=== PATIENT | male | born 1970 | race American Indian/Alaskan Native ===

== ENCOUNTER 2017-12-24 01:23 | Emergency (ER) | payer OTHER ==
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
[2017-12-24 12:11] VITALS: BP 133/83
== END 2017-12-24 11:58 | disposition home or self-care (01) ==
LOC: ED 01:23
DX: S39.012A Strain of muscle, fascia and tendon of lower back, initial encounter (principal); S66.911A Strain of unspecified muscle, fascia and tendon at wrist and hand level, right hand, initial encounter; S86.912A Strain of unspecified muscle(s) and tendon(s) at lower leg level, left leg, initial encounter; S13.4XXA Sprain of ligaments of cervical spine, initial encounter; V49.40XA Driver injured in collision with unspecified motor vehicles in traffic accident, initial encounter; I10 Essential (primary) hypertension; I25.2 Old myocardial infarction; Y93.89 Activity, other specified; Y92.89 Other specified places as the place of occurrence of the external cause; Y99.8 Other external cause status
CPT/HCPCS: 74022; 99283

== ENCOUNTER 2018-03-10 00:57 | Inpatient (IN) | payer SELFPAY ==
[2018-03-10] MEDS ORDERED: ZOFRAN ONE (01:33)
[2018-03-10] MEDS ORDERED: ZOFRAN IV ONE (01:35)
--- NOTE | 2018-03-10 01:35 | Emergency Department Report ---
HPI - General Chief Complaint: Dizziness Time Seen by Provider: 03/10/18 01:05 - HPI HPI: This is a 47-year-old -[place] male presents to the emergency department via EMS from home with complaint of nausea, vomiting, dizziness and shortness of breath that started about one hour prior to presentation. The patient has vomited about 6 times in total including 4 times even after EMS arrived. He received 4 mg of Zofran in route with some improvement. Prior to EMS, the patient took a sublingual nitroglycerin and an aspirin for his symptoms. He denies any chest pain does have a significant history of 2 previous heart attacks in 2012 in 2016, hypertension. He has a pacemaker/ defibrillator and has coronary stents in place. 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 No recent travel or sick contacts at home. ED Past Medical Hx - Past Medical History Previous Medical History?: Yes Hx Hypertension: Yes Hx Heart Attack/AMI: Yes (2011, 2015) - Surgical History Past Surgical History?: Yes Hx Coronary Stent: Yes Additional Surgical History: stents placed by [facility]? left chest pacemaker/defibrillator 2016 - Social History Smoking Status: Never Smoker Substance Use Type: None - Medications Home Medications: Home Medications Medication Instructions Recorded Confirmed Last Taken Type Aspirin EC [Aspirin Enteric Coated 81 mg PO QDAY #30 tablet 01/09/16 03/10/18 10:00 Rx TAB] AtorvaSTATin [Lipitor] 40 mg PO QHS #30 tablet 01/09/16 03/10/18 07/09/16 10:00 Rx Clopidogrel [Plavix] 75 mg PO QDAY #30 tablet 01/09/16 03/10/18 07/09/16 10:00 Rx Metoprolol [Lopressor TAB] 50 mg PO BID #60 tablet 07/23/16 03/10/18 Unknown Rx ED Review of Systems ROS: Stated complaint: N/V/DIZZINESS Other details as noted in HPI Comment: All other systems reviewed and negative Constitutional: denies: chills, fever Eyes: denies: eye pain, eye discharge, vision change ENT: denies: ear pain, throat pain Respiratory: shortness of breath. denies: cough Cardiovascular: denies: chest pain, edema Gastrointestinal: nausea, vomiting Genitourinary: denies: urgency, dysuria Musculoskeletal: denies: back pain, joint swelling, arthralgia Skin: denies: rash, lesions Neurological: other (dizziness). denies: weakness Physical Exam - Physical Exam Vital Signs: Vital Signs 03/10/18 03/10/18 01:03 01:24 Temperature 97.8 F Pulse Rate 86 Respiratory 15 16 Rate Blood Pressure 120/78 Blood Pressure 120/78 [Left] O2 Sat by Pulse 97 97 Oximetry Physical Exam: GENERAL: Patient is ill-appearing. Actively vomiting. HENT: Normocephalic. Atraumatic. Patient has moist mucous membranes. EYES: Extraocular motions are intact. Pupils equal reactive to light bilaterally. NECK: Supple. Trachea is midline. CHEST/LUNGS: Clear to auscultation. There is no respiratory distress noted. HEART/CARDIOVASCULAR: Regular. There is no tachycardia. There is no murmur. ABDOMEN: Abdomen is soft. Mild epigastric tenderness to palpation. No guarding. Patient has normal bowel sounds. There is no abdominal distention. SKIN: Skin is warm and dry. NEURO: The patient is awake, alert, and oriented. The patient is cooperative. The patient has no focal neurologic deficits. The patient has normal speech. Cranial nerves II through XII grossly intact. MUSCULOSKELETAL: There is no tenderness or deformity. There is no limitation range of motion. There is no evidence of acute injury. ED Course Vital Signs 03/10/18 03/10/18 01:03 01:24 Temperature 97.8 F Pulse Rate 86 Respiratory 15 16 Rate Blood Pressure 120/78 Blood Pressure 120/78 [Left] O2 Sat by Pulse 97 97 Oximetry - Reevaluation(s) Reevaluation #1: The patient was reevaluated and we attempted to see how he did with ambulation but the patient felt very dizzy, began vomiting and then began complaining of some chest tightness. A third EKG was completed that was unchanged from the previous 2. Patient will have a CT angiography of the chest as well as a CT without contrast of the head. He will then be admitted to the hospital for further evaluation and treatment. 03/10/18 06:21 ED Medical Decision Making - Lab Data Result diagrams: 03/11/18 07:19 03/11/18 07:19 - EKG Data -: EKG Interpreted by [facility] EKG shows normal: sinus rhythm, axis, intervals, QRS complexes (Q waves to the septal and anterior leads, LVH), ST-T waves Rate: normal - EKG Data When compared to previous EKG there are: no significant change Interpretation: unchanged when compared t (07/23/16) - Radiology Data Radiology results: report reviewed, image reviewed PROCEDURE: CT ANGIO CHEST TECHNIQUE: Computerized tomographic angiography of the chest was performed after the IV injection of iodinated nonionic contrast including image processing. The image data was postprocessed using 2-dimensional multiplanar reformatted (MPR) and 3-dimensional (MIP and/or volume rendered) techniques. HISTORY: CP, dizziness COMPARISON: No prior studies are available for comparison. FINDINGS: Heart and pericardium: Normal. Thoracic aorta: Normal. Pulmonary vasculature: Normal. Lymph nodes: No enlarged thoracic lymph nodes. Lungs: Slight atelectasis bilateral lower lungs. No consolidation, effusion or pneumothorax. The central airway is patent. Pleural space: No effusion, thickening, or pneumothorax. Musculoskeletal structures: No significant abnormality. Upper abdominal structures: No significant abnormality. IMPRESSION: There is no evidence of pulmonary arterial emboli. Bilateral lower lung atelectasis. PROCEDURE: CT HEAD/BRAIN WO CON TECHNIQUE: Computerized tomography of the head was performed without contrast material. HISTORY: dizziness COMPARISON: No prior studies are available for comparison. FINDINGS: Skull and scalp: Normal. Paranasal sinuses: Normal. Ventricles and subarachnoid spaces: Normal. Cerebrum: No evidence of hemorrhage, acute infarction or mass . Cerebellum and brainstem: No evidence of hemorrhage, acute infarction or mass. Vasculature: Normal. Comments: None. IMPRESSION: Normal Examination Transcribed By: [facility] Dictated By: BRYON MONDRAGON MD Electronically Authenticated By: BRYON MONDRAGON MD Signed Date/Time: 03/10/18 0644 - Medical Decision Making Patient originally came in with a complaint of nausea and vomiting, shortness of breath and some nonspecific dizziness. He was treated with some IV fluid, antinausea medications. His labs were unremarkable. He had an x-ray of the chest and abdomen that did not show any acute processes. During his ED course we attempted to get him up to ambulate to see how he did regarding his symptoms. As soon as he got up, he became very dizzy with some vertigo like symptoms, complained of chest tightness and had continued nausea and vomiting. He was given some Antivert. A CT of the head without contrast was done that did not show any bleed, shift, mass or any acute process. CT angiography did not show any pulmonary embolism or aortic dissection. Patient was admitted to the hospital for further evaluation and treatment and accepted for admission by the hospitalist service. - Differential Diagnosis vertigo, NM, PE, dysrhythmia, viral syndrome Critical Care Time: No Critical care attestation.: If time is entered above; I have spent that time in minutes in the direct care of this critically ill patient, excluding procedure time. ED Disposition Clinical Impression: Dizziness, Chest tightness Dyspnea Qualifiers: Dyspnea type: shortness of breath Qualified Code(s): R06.02 - Shortness of breath Intractable nausea and vomiting Qualifiers: Vomiting type: unspecified Qualified Code(s): R11.2 - Nausea with vomiting, unspecified Disposition: DC-09 OP ADMIT IP TO THIS HOSP Is pt being admited?: Yes Condition: Fair Time of Disposition: 06:23
[2018-03-10 01:38] LABS: Basophils % (Auto) 0.4 % (0.0-1.8); Eosinophils # (Auto) 0.1 K/mm3 (0.0-0.4); Eosinophils % (Auto) 1.6 % (0.0-4.3); Hematocrit 41.9 % (35.5-45.6); Hemoglobin 14.1 gm/dl (11.8-15.2); Lymphocytes # (Auto) 2.2 K/mm3 (1.2-5.4); Lymphocytes % (Auto) 24.6 % (13.4-35.0); Mean Corpuscular HGB Conc 34 % (32-34); Mean Corpuscular Hemoglobin 30 pg (28-32); Mean Corpuscular Volume 90 fl (84-94); Monocytes # (Auto) 0.5 K/mm3 (0.0-0.8); Platelet Count 198 K/mm3 (140-440); Red Blood Count 4.67 M/mm3 (3.65-5.03); Red Cell Distribution Width 13.5 % (13.2-15.2)
[2018-03-10 01:49] LABS: BUN/Creatinine Ratio 12; Blood Urea Nitrogen 13 mg/dL (9-20); Calcium 9.4 mg/dL (8.4-10.2); Hemolysis Index 3
[2018-03-10 01:53] LABS: Alanine Aminotransferase 16 units/L (7-56); Albumin 4.5 g/dL (3.9-5); Lipase 14 units/L (13-60)
[2018-03-10 01:57] LABS: Bilirubin,Direct < 0.2 mg/dL (0-0.2)
[2018-03-10] MEDS ORDERED: NACL 0.9% 500 ML 500 ML IV SCH (02:00)
--- NOTE | 2018-03-10 02:30 | XRay Report ---
FINAL REPORT PROCEDURE: XR ABD SERIES W CXR 1V TECHNIQUE: Abdominal series complete, including supine and upright AP views of the abdomen and frontal chest. HISTORY: SOB, N/V COMPARISON: No prior studies are available for comparison. FINDINGS: Heart: Normal. Mediastinum/Vessels: There is a cardiac pacemaker with the battery in the left chest wall. Lungs/Pleural space: Normal. Bowel gas pattern: Nonobstructive. Masses or calcifications: None. Bony structures: No acute osseous abnormality. Other: No free intraperitoneal air. IMPRESSION: No acute abnormality.
[2018-03-10] MEDS ORDERED: NACL 0.9% 1000 ML 1,000 ML IV ONE (03:47)
[2018-03-10] MEDS ORDERED: REGLAN IV ONE (05:10)
[2018-03-10] MEDS ORDERED: REGLAN ONE (05:11)
[2018-03-10] MEDS ORDERED: ANTIVERT PO ONE (05:37)
--- NOTE | 2018-03-10 06:52 | Cat Scan Report ---
FINAL REPORT PROCEDURE: CT HEAD/BRAIN WO CON TECHNIQUE: Computerized tomography of the head was performed without contrast material. HISTORY: dizziness COMPARISON: No prior studies are available for comparison. FINDINGS: Skull and scalp: Normal. Paranasal sinuses: Normal. Ventricles and subarachnoid spaces: Normal. Cerebrum: No evidence of hemorrhage, acute infarction or mass . Cerebellum and brainstem: No evidence of hemorrhage, acute infarction or mass. Vasculature: Normal. Comments: None. IMPRESSION: Normal Examination
--- NOTE | 2018-03-10 06:53 | Cat Scan Report ---
FINAL REPORT PROCEDURE: CT ANGIO CHEST TECHNIQUE: Computerized tomographic angiography of the chest was performed after the IV injection of iodinated nonionic contrast including image processing. The image data was postprocessed using 2-dimensional multiplanar reformatted (MPR) and 3-dimensional (MIP and/or volume rendered) techniques. HISTORY: CP, dizziness COMPARISON: No prior studies are available for comparison. FINDINGS: Heart and pericardium: Normal. Thoracic aorta: Normal. Pulmonary vasculature: Normal. Lymph nodes: No enlarged thoracic lymph nodes. Lungs: Slight atelectasis bilateral lower lungs. No consolidation, effusion or pneumothorax. The central airway is patent. Pleural space: No effusion, thickening, or pneumothorax. Musculoskeletal structures: No significant abnormality. Upper abdominal structures: No significant abnormality. IMPRESSION: There is no evidence of pulmonary arterial emboli. Bilateral lower lung atelectasis.
[2018-03-10 08:02] LABS: Bilirubin,Urine NEG (Negative); Blood,Urine NEG (Negative); Color,Urine Yellow (Yellow); Mucus,Urine FEW /HPF; Protein,Urine <15 mg/dL mg/dL (Negative); Urobilinogen,Urine < 2.0 mg/dL (<2.0); WBC,Urine < 1.0 /HPF (0.0-6.0)
[2018-03-10] MEDS ORDERED: ZOFRAN IV PRN (08:15)
[2018-03-10] MEDS ORDERED: TYLENOL PO PRN (08:15)
[2018-03-10] MEDS ORDERED: SODIUM CHLORIDE FLUSH SYRINGE 10 ML IV PRN (08:15)
[2018-03-10] MEDS ORDERED: PERCOCET 5/325 PO PRN (08:15)
--- NOTE | 2018-03-10 08:15 | History and Physical Report ---
History of Present Illness Date of examination: 03/10/18 Chief complaint: Dizziness History of present illness: 47-year-old male with past medical history significant for CAD status post stent , cardiomyopathy status post ICD presented to the emergency department for the complaints of dizziness and shortness of breath that started yesterday evening. Patient was walking while the incident happens, patient didn't fall. The room spins around him. patient is also complaining of SOB that worsened with exertion. Patient's systolic blood pressure was in the 150's when the dizziness started. patient took nitroglycerin before the incident. Patient is also complaining of associated recurrent nausea and vomiting. patient has been followed with [place] [facility]. patient denied fever, chills, cough, palpitations. REVIEW OF SYSTEMS: GENERAL: no weight change, no fatigue, no fever HEAD: no head ache EYES: no blurry vision, no acute visual loss EARS: no hearing loss, no discharge, no earache NOSE: no stuffiness, no sneezing, no discharge MOUTH, THROAT AND NECK: no bleeding gums, no sore throat, no swollen neck CARDIAC: As stated in the HPI. RESPIRATORY: As stated in the HPI. GI: no decreased appetite, no nausea, no vomiting, no dysphagia, no diarrhea, no constipation, no abdominal pain URINARY: no change in frequency, no urgency, no polyuria, no hematuria, no incontinence MUSCULOSKELETAL: no muscle weakness, no pain, no joint stiffness NEUROLOGIC: no loss of sensation/numbness, no tingling, no tremors, no weakness/ paralysis HEMATOLOGIC: no anemia, no easy bruising SKIN: no rashes ENDOCRINE: no heat/cold intolerance, no polyuria, no polydipsia, no thyroid problems, no diabetes PSYCHIATRIC: no anxiety, no depression, no suicidal ideations Past History Past Medical History: CAD, heart failure, hypertension, hyperlipidemia Past Surgical History: Other (ICD placement) Social history: full code. denies: smoking, alcohol abuse, prescription drug abuse, IV drug use Family history: no significant family history Medications and Allergies Allergies Allergy/AdvReac Type Severity Reaction Status Date / Time No Known Allergies Allergy Verified 07/09/16 11:21 Home Medications Medication Instructions Recorded Confirmed Last Taken Type Aspirin EC [Aspirin Enteric Coated 81 mg PO QDAY #30 tablet 01/09/16 03/10/18 10:00 Rx TAB] AtorvaSTATin [Lipitor] 40 mg PO QHS #30 tablet 01/09/16 03/10/18 07/09/16 10:00 Rx Clopidogrel [Plavix] 75 mg PO QDAY #30 tablet 01/09/16 03/10/18 07/09/16 10:00 Rx Metoprolol [Lopressor TAB] 50 mg PO BID #60 tablet 07/23/16 03/10/18 Unknown Rx Active Meds: Active Medications Sodium Chloride (Nacl 0.9% 500 Ml) 500 mls @ 150 mls/hr IV DIRECT PARDEEP Last Admin: 03/10/18 04:41 Dose: 150 mls/hr Exam - Physical Exam Narrative exam: Not in cardiopulmonary distress. The patient appeared well nourished and normally developed. Vital signs as documented. Head exam is unremarkable. No scleral icterus . Neck is without jugular venous distension, thyromegaly, or carotid bruits. Lungs are clear to auscultation. Cardiac exam reveals regular rate and Rhythm. First and second heart sounds normal. No murmurs, rubs or gallops. Abdominal exam reveals normal bowel sounds, no masses, no organomegaly and no aortic enlargement. Extremities are nonedematous and both femoral and pedal pulses are normal. 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 No focal weakness. - Constitutional Vitals: Temp Pulse Resp BP Pulse Ox 97.8 F 80 17 98/57 100 03/10/18 01:03 03/10/18 04:00 03/10/18 04:00 03/10/18 04:00 03/10/18 04:00 Results - Labs CBC & Chem 7: 03/10/18 01:20 03/10/18 01:20 Labs: Laboratory Last Values WBC 9.1 K/mm3 (4.5-11.0) 03/10/18 01:20 RBC 4.67 M/mm3 (3.65-5.03) 03/10/18 01:20 Hgb 14.1 gm/dl (11.8-15.2) 03/10/18 01:20 Hct 41.9 % (35.5-45.6) 03/10/18 01:20 MCV 90 fl (84-94) 03/10/18 01:20 MCH 30 pg (28-32) 03/10/18 01:20 MCHC 34 % (32-34) 03/10/18 01:20 RDW 13.5 % (13.2-15.2) 03/10/18 01:20 Plt Count 198 K/mm3 (140-440) 03/10/18 01:20 Lymph % (Auto) 24.6 % (13.4-35.0) 03/10/18 01:20 [place] % (Auto) 6.0 % (0.0-7.3) 03/10/18 01:20 Eos % (Auto) 1.6 % (0.0-4.3) 03/10/18 01:20 Baso % (Auto) 0.4 % (0.0-1.8) 03/10/18 01:20 Lymph # 2.2 K/mm3 (1.2-5.4) 03/10/18 01:20 [place] # 0.5 K/mm3 (0.0-0.8) 03/10/18 01:20 Eos # 0.1 K/mm3 (0.0-0.4) 03/10/18 01:20 Baso # 0.0 K/mm3 (0.0-0.1) 03/10/18 01:20 Seg Neutrophils % 67.4 % (40.0-70.0) 03/10/18 01:20 Seg Neutrophils # 6.1 K/mm3 (1.8-7.7) 03/10/18 01:20 D-Dimer 146.27 ng/mlDDU (0-234) 03/10/18 02:17 Sodium 140 mmol/L (137-145) 03/10/18 01:20 Potassium 3.8 mmol/L (3.6-5.0) 03/10/18 01:20 Chloride 98.5 mmol/L (98-107) 03/10/18 01:20 Carbon Dioxide 26 mmol/L (22-30) 03/10/18 01:20 Anion Gap 19 mmol/L 03/10/18 01:20 BUN 13 mg/dL (9-20) 03/10/18 01:20 Creatinine 1.1 mg/dL (0.8-1.5) 03/10/18 01:20 Estimated GFR > 60 ml/min 03/10/18 01:20 BUN/Creatinine Ratio 12 % 03/10/18 01:20 Glucose 115 mg/dL (75-100) H 03/10/18 01:20 Calcium 9.4 mg/dL (8.4-10.2) 03/10/18 01:20 Total Bilirubin 0.20 mg/dL (0.1-1.2) 03/10/18 01:20 Direct Bilirubin < 0.2 mg/dL (0-0.2) 03/10/18 01:20 Indirect Bilirubin 0.0 mg/dL 03/10/18 01:20 AST 22 units/L (5-40) 03/10/18 01:20 ALT 16 units/L (7-56) 03/10/18 01:20 Alkaline Phosphatase 38 units/L (35-129) 03/10/18 01:20 Troponin T < 0.010 ng/mL (0.00-0.029) 03/10/18 06:58 Total Protein 7.0 g/dL (6.3-8.2) 03/10/18 01:20 Albumin 4.5 g/dL (3.9-5) 03/10/18 01:20 Albumin/Globulin Ratio 1.8 % 03/10/18 01:20 Lipase 14 units/L (13-60) 03/10/18 01:20 TSH 3.040 mlU/mL (0.270-4.200) 03/10/18 01:20 Urine Bilirubin Neg (Negative) 03/10/18 07:38 Urine RBC (Auto) 2.0 /HPF (0.0-6.0) 03/10/18 07:38 Assessment and Plan Assessment and plan: Vertigo, recurrent nausea and vomiting - Symptomatic treatment with meclizine - CT head negative - Neurology consult placed - Gall bladder ultrasound ordered CAD status post stent, cardiomyopathy - Continue medications - Cardiology consult appreciated - Recommend ICD interrogation Hypertension - I hold his blood pressure medications because his blood pressure is marginally low Hyperlipidemia - Continue home statin DVT - On heparin Disposition - Admit to telemetry floor Advance Directives: Yes VTE prophylaxis?: Chemical Plan of care discussed with patient/family: Yes
[2018-03-10] MEDS ORDERED: LOPRESSOR PO SCH (10:00)
[2018-03-10] MEDS ORDERED: ALDACTONE PO SCH (10:00)
[2018-03-10] MEDS: SODIUM CHLORIDE FLUSH SYRINGE 10 ML IV SCH ×2 (10:44→21:23)
[2018-03-10] MEDS: PLAVIX PO SCH (10:44)
[2018-03-10] MEDS: PEPCID PO SCH ×2 (10:44→21:22)
--- NOTE | 2018-03-10 11:56 | Consultation ---
History of Present Illness Consult date: 03/10/18 Consult reason: known to you, other (Dizziness) History of present illness: This is a 47 year old male who presented with abdominal pain, nausea vomiting and dizziness. Patient reports he took 2 nitroglycerin at home prior to calling EMS as he thought this would help his dizziness. He has no unusual shortness of breath, chest pain or palpitations. Stable blood pressure of 120/78 on arrival to the emergency department. 12 lead ECG shows a sinus rhythm, no acute ischemic changes. Patient has a known history of ischemic cardiomyopathy and coronary artery disease. His latest cardiac workup was done as an outpatient a year ago. He had a negative exercise treadmill test during which he exercised for nearly 8 minutes. He also has a indwelling Biotronik cardiac defibrillator. Routine ICD interrogations revealed no appropriate or inappropriate therapy. Normal functioning AICD. Medications and Allergies Allergies Allergy/AdvReac Type Severity Reaction Status Date / Time No Known Allergies Allergy Verified 07/09/16 11:21 Home Medications Medication Instructions Recorded Confirmed Last Taken Type Aspirin EC [Aspirin Enteric Coated 81 mg PO QDAY #30 tablet 01/09/16 03/10/18 10:00 Rx TAB] AtorvaSTATin [Lipitor] 40 mg PO QHS #30 tablet 01/09/16 03/10/18 07/09/16 10:00 Rx Clopidogrel [Plavix] 75 mg PO QDAY #30 tablet 01/09/16 03/10/18 07/09/16 10:00 Rx Metoprolol [Lopressor TAB] 50 mg PO BID #60 tablet 07/23/16 03/10/18 Unknown Rx Active Meds: Active Medications Acetaminophen (Tylenol) 650 mg PO Q4H PRN PRN Reason: Pain MILD(1-3)/Fever >100.5/KELLEY Aspirin (Halfprin Ec) 81 mg PO QDAY [facility] Atorvastatin Calcium (Lipitor) 40 mg PO QHS [facility] Clopidogrel Bisulfate (Plavix) 75 mg PO QDAY [facility] Last Admin: 03/10/18 10:44 Dose: 75 mg Cyclobenzaprine HCl (Flexeril) 10 mg PO QHS PRN PRN Reason: Muscle Spasm Famotidine (Pepcid) 20 mg PO BID [facility] Last Admin: 03/10/18 10:44 Dose: 20 mg Heparin Sodium (Porcine) (Heparin) 5,000 unit SUB-Q Q8HR [facility] Sodium Chloride (Nacl 0.9% 500 Ml) 500 mls @ 150 mls/hr IV DIRECT PARDEEP Last Admin: 03/10/18 04:41 Dose: 150 mls/hr Ondansetron HCl (Zofran) 4 mg IV Q8H PRN PRN Reason: Nausea And Vomiting Oxycodone/Acetaminophen (Percocet 5/325) 1 tab PO Q6H PRN PRN Reason: Pain, Moderate (4-6) Sodium Chloride (Sodium Chloride Flush Syringe 10 Ml) 10 ml IV BID [facility] Last Admin: 03/10/18 10:44 Dose: 10 ml Sodium Chloride (Sodium Chloride Flush Syringe 10 Ml) 10 ml IV PRN PRN PRN Reason: LINE FLUSH Physical Examination Vital Signs Temp Pulse Resp BP Pulse Ox 97.8 F 86 15 120/78 97 03/10/18 01:03 03/10/18 01:03 03/10/18 01:03 03/10/18 01:03 03/10/18 01:03 General appearance: no acute distress HEENT: Positive: PERRL Cardiac: Positive: Reg Rate and Rhythm Lungs: Positive: Decreased Breath Sounds Neuro: Positive: Grossly Intact Extremities: Absent: edema Results 03/10/18 01:20 03/10/18 01:20 Cardiac Enzymes 03/10/18 Range/Units 01:20 AST 22 (5-40) units/L CBC 03/10/18 Range/Units 01:20 WBC 9.1 (4.5-11.0) K/mm3 RBC 4.67 (3.65-5.03) M/mm3 Hgb 14.1 (11.8-15.2) gm/dl Hct 41.9 (35.5-45.6) % Plt Count 198 (140-440) K/mm3 Lymph # 2.2 (1.2-5.4) K/mm3 [place] # 0.5 (0.0-0.8) K/mm3 Eos # 0.1 (0.0-0.4) K/mm3 Baso # 0.0 (0.0-0.1) K/mm3 Comprehensive Metabolic Panel 03/10/18 03/10/18 Range/Units 01:20 01:20 Sodium 140 (137-145) mmol/L Potassium 3.8 (3.6-5.0) mmol/L Chloride 98.5 (98-107) mmol/L Carbon Dioxide 26 (22-30) mmol/L BUN 13 (9-20) mg/dL Creatinine 1.1 (0.8-1.5) mg/dL Glucose 115 H (75-100) mg/dL Calcium 9.4 (8.4-10.2) mg/dL Direct Bilirubin < 0.2 (0-0.2) mg/dL Indirect Bilirubin 0.0 mg/dL AST 22 (5-40) units/L ALT 16 (7-56) units/L Alkaline Phosphatase 38 (35-129) units/L Total Protein 7.0 (6.3-8.2) g/dL Albumin 4.5 (3.9-5) g/dL Assessment and Plan Abdominal pain with N/V Dizziness Hx of Ischemic cardiomyopathy Presence of Biotronik AICD Hx of MD/CAD 05/2016: 25-30% by echo 10/2016: exercise treadmill test -negative Recommendations: We will get an echocardiogram for reassessment of LVEF. We will also get an ICD interrogation. GI evaluation for abnormal pain with nausea and vomiting on presentation.
--- NOTE | 2018-03-10 13:54 | Event Note ---
Date: 03/10/18 Patient is a 47-year-old man with a history of two-vessel coronary artery disease and ischemic cardiomyopathy. His suffered an anterior myocardial infarction 2 years ago, followed by coronary stents to the LAD and right coronary artery. He has an internal cardiac defibrillator in situ. An exercise stress test a year ago was negative. He presents to the hospital at this time with acute onset of vertigo, which manifested as a spinning sensation that started suddenly and persisted culminating in repeated vomiting. There was no chest pain, no shortness of breath, no palpitations, no ICD discharge and no syncope. He reported that he took sublingual nitroglycerin with no resolution. He was evaluated in the emergency room and referred for admission. ECG is normal sinus rhythm, old anterior myocardial infarction, no acute changes. Cardiac isoenzymes are negative. On my further exam at this time, he is laying in bed and comfortable. On my further testing, I am able to elicit residual vertiginous symptoms with lateral movements of his head. A CT scan of his brain done in the emergency room was reported negative. Recommendations: Patient's presentation appears consistent with acute positional vertigo, differential diagnoses include labyrinthitis versus other inner ear pathology. Although the protracted vomiting was likely secondary to vertigo, will be prudent to also obtain a gallbladder ultrasound. No cardiac workup is indicated for acute vertigo, but will obtain an ICD interrogation prior to discharge. Trial of meclizine for symptomatic relief.
[2018-03-10] MEDS ORDERED: ANTIVERT PO PRN (13:58)
--- NOTE | 2018-03-10 15:37 | Ultrasound Report ---
ULTRASOUND ABDOMEN LIMITED: TECHNIQUE: Transabdominal ultrasound with color Doppler interrogation. HISTORY: Vomiting. COMPARISON: none. FINDINGS: LIVER: Normal. BILIARY SYSTEM: Normal. PANCREAS: Normal. RIGHT KIDNEY: Normal. PROXIMAL AORTA: Normal. ASCITES: None. IMPRESSION: Unremarkable exam.
[2018-03-10] MEDS: HALFPRIN EC PO SCH (17:16)
[2018-03-10] MEDS: HEPARIN SUB-Q SCH ×2 (17:17→21:23)
--- NOTE | 2018-03-10 17:46 | Consultation ---
History of Present Illness Consult date: 03/10/18 Requesting physician: EFREN ALEXANDER Reason for Consult: Acute onset of vertigo History of present illness: 47 year old male presented to ER with complaint of acute dizziness and shortness of breath beginning at 10 pm. last night. He was walking in the house when it suddenly began. He had several spells of nauea and vomiting, about 4 times that night. When lying down he had no problem and he slept thru the night. Turning in bed did not cause as much vertigo When arising from bed in the a.m. it recurred with nausea and vomiting. The pt.describes the sensation as the room spinning. He denies chest pain, diaphoresis, diplopia, or feeling faint with these symptoms. He presented to ED this a.m. and continued with symptoms there. He has been started on meclizine. CT scan of the brain is normal. He denies any recent sinus infection or viral illness. Has been feeling well in general until this event. Never had an event like this before. The pt. has history of CAD and cardiomyopathy. He has an ICD in place, therefore MRI scan cannot be obtained. Past History Past Medical History: CAD, heart failure, hypertension, hyperlipidemia Past Surgical History: Other (ICD placement) Social history: full code. denies: smoking, alcohol abuse, prescription drug abuse, IV drug use Family history: no significant family history Medications and Allergies Allergies Allergy/AdvReac Type Severity Reaction Status Date / Time No Known Allergies Allergy Verified 07/09/16 11:21 Home Medications Medication Instructions Recorded Confirmed Last Taken Type Aspirin EC [Aspirin Enteric Coated 81 mg PO QDAY #30 tablet 01/09/16 03/10/18 10:00 Rx TAB] AtorvaSTATin [Lipitor] 40 mg PO QHS #30 tablet 01/09/16 03/10/18 07/09/16 10:00 Rx Clopidogrel [Plavix] 75 mg PO QDAY #30 tablet 01/09/16 03/10/18 07/09/16 10:00 Rx Metoprolol [Lopressor TAB] 50 mg PO BID #60 tablet 07/23/16 03/10/18 Unknown Rx Active Meds: Active Medications Acetaminophen (Tylenol) 650 mg PO Q4H PRN PRN Reason: Pain MILD(1-3)/Fever >100.5/[place] Aspirin (Halfprin Ec) 81 mg PO QDAY [facility] Last Admin: 03/10/18 17:16 Dose: 81 mg Atorvastatin Calcium (Lipitor) 40 mg PO QHS [facility] Clopidogrel Bisulfate (Plavix) 75 mg PO QDAY [facility] Last Admin: 03/10/18 10:44 Dose: 75 mg Cyclobenzaprine HCl (Flexeril) 10 mg PO QHS PRN PRN Reason: Muscle Spasm Famotidine (Pepcid) 20 mg PO BID [facility] Last Admin: 03/10/18 10:44 Dose: 20 mg Heparin Sodium (Porcine) (Heparin) 5,000 unit SUB-Q Q8HR [facility] Last Admin: 03/10/18 17:17 Dose: 5,000 unit Sodium Chloride (Nacl 0.9% 500 Ml) 500 mls @ 150 mls/hr IV DIRECT [facility] Last Admin: 03/10/18 04:41 Dose: 150 mls/hr Lisinopril (Zestril) 10 mg PO QDAY [facility] Meclizine HCl (Antivert) 25 mg PO Q6H PRN PRN Reason: Vertigo Ondansetron HCl (Zofran) 4 mg IV Q8H PRN PRN Reason: Nausea And Vomiting Oxycodone/Acetaminophen (Percocet 5/325) 1 tab PO Q6H PRN PRN Reason: Pain, Moderate (4-6) Sodium Chloride (Sodium Chloride Flush Syringe 10 Ml) 10 ml IV BID [facility] Last Admin: 03/10/18 10:44 Dose: 10 ml Sodium Chloride (Sodium Chloride Flush Syringe 10 Ml) 10 ml IV PRN PRN PRN Reason: LINE FLUSH Spironolactone (Aldactone) 50 mg PO QDAY [facility] Review of Systems Constitutional: no fever, no chills, no sweats, no weakness, no chronic headaches Ears, nose, mouth and throat: vertigo, no ear pain, no tinnitis, no decreased hearing, no sinus pressure, no sinus pain, no sore throat, no headache Cardiovascular: shortness of breath, no chest pain, no orthopnea, no palpitations, no rapid/irregular heart beat, no edema, no syncope, no lightheadedness Respiratory: shortness of breath, no cough, no congestion, no pain Gastrointestinal: nausea, vomiting, no abdominal pain, no diarrhea, no constipation Genitourinary Male: no dysuria, no urinary frequency Musculoskeletal: no neck stiffness, no neck pain, no gait dysfunction, no frequent falls Integumentary: no rash Neurological: vertigo, no head injury, no transient paralysis, no weakness, no numbness, no tingling, no seizures, no syncope, no ataxia, no lack of coordination, no headaches, no migraines, no balance difficulties, no gait dysfunction, no motor disturbance, no double vision Physical Examination - Vital Signs Vital Signs: Vital Signs Temp Pulse Resp BP Pulse Ox 97.8 F 86 15 120/78 97 03/10/18 01:03 03/10/18 01:03 03/10/18 01:03 03/10/18 01:03 03/10/18 01:03 - Physical Exam Narrative exam: Resting comfortably in bed. Vitals stable. HEENT - no lesions, no inflammation. Chest - clear Heart - reg. rate. normal S-1, S-2. Abdomen - soft, nontender Extremities - no CCE Neurological - speech fluent. Oriented times 3. broacher - EOMs full. no nystagmus in all minaya. face symmetric, V-1 to V-3 intact bilaterally tongue midline, hearing intact. Motor - 5/5 throughout. Reflexes - +1 bilaterally. Sensory - intact to touch and pin throughout Cerebellar - intact finger to nose, Meg, fine finger movements. Results - Laboratory Findings CBC and BMP: 03/11/18 07:19 03/11/18 07:19 Abnormal Lab Findings: Abnormal Labs 03/10/18 03/10/18 01:20 07:38 Glucose 115 H Ur Specific [place] 1.032 H Assessment and Plan 47 year old male presented with acute onset of vertigo, nausea and vomiting, beginning last nite. Most exacerbated by change in vertical postition. he has been started on Meclizine and Zofran with improvement of his symptoms. He has been sitting up and waliking to restroom with no symptoms. This is most likely benign positional vertigo, responding to meds. Will observe over the night. Plaan - continue Meclizine and Zofran. PT for vestibular exercises.
[2018-03-10] MEDS ORDERED: FLEXERIL PO PRN (22:00)
[2018-03-11] MEDS: HEPARIN SUB-Q SCH ×2 (08:03→13:54)
[2018-03-11 08:37] LABS: Basophils % (Auto) 0.7 % (0.0-1.8); Eosinophils # (Auto) 0.2 K/mm3 (0.0-0.4); Eosinophils % (Auto) 3.4 % (0.0-4.3); Hematocrit 44.2 % (35.5-45.6); Hemoglobin 14.5 gm/dl (11.8-15.2); Lymphocytes # (Auto) 3.3 K/mm3 (1.2-5.4); Lymphocytes % (Auto) 45.6 % (13.4-35.0); Mean Corpuscular HGB Conc 33 % (32-34); Mean Corpuscular Hemoglobin 30 pg (28-32); Mean Corpuscular Volume 91 fl (84-94); Monocytes # (Auto) 0.7 K/mm3 (0.0-0.8); Monocytes % (Auto) 9.1 % (0.0-7.3); Platelet Count 210 K/mm3 (140-440); Red Blood Count 4.86 M/mm3 (3.65-5.03); Red Cell Distribution Width 13.4 % (13.2-15.2)
[2018-03-11 08:53] LABS: BUN/Creatinine Ratio 10; Blood Urea Nitrogen 10 mg/dL (9-20); Calcium 9.1 mg/dL (8.4-10.2); Hemolysis Index 12
--- NOTE | 2018-03-11 09:46 | Progress Note ---
Assessment and Plan Vertigo with N/V Hx of Ischemic cardiomyopathy Presence of Biotronik AICD Hx of [place]/CAD 05/2016: 25-30% by echo 10/2016: exercise treadmill test -negative Recommendations: We will get an echocardiogram for reassessment of LVEF. We will also get an ICD interrogation today. Otherwise, no further cardiac workup indicated. Subjective Date of service: 03/11/18 Interval history: No cardiac events on telemetry overnight. Objective Vital Signs Temp Pulse Resp BP BP Pulse Ox 03/11/18 00:36 98.6 F 63 20 109/68 95 03/10/18 22:00 18 03/10/18 20:53 98.5 F 82 20 116/73 97 03/10/18 18:43 97.9 F 66 18 113/62 99 03/10/18 14:42 97.6 F 67 20 115/74 99 03/10/18 14:37 115/74 03/10/18 11:00 74 19 107/65 98 03/10/18 10:51 86 18 96/56 100 03/10/18 10:41 78 19 96/56 99 03/10/18 10:30 71 14 96/56 98 03/10/18 10:15 65 15 113/66 93 03/10/18 10:00 72 15 101/61 96 - Physical Examination General: No Apparent Distress HEENT: Positive: PERRL Cardiac: Positive: Reg Rate and Rhythm Neuro: Positive: Grossly Intact Extremities: Absent: edema - Labs and Meds CBC 03/11/18 Range/Units 07:19 WBC 7.2 (4.5-11.0) K/mm3 RBC 4.86 (3.65-5.03) M/mm3 Hgb 14.5 (11.8-15.2) gm/dl Hct 44.2 (35.5-45.6) % Plt Count 210 (140-440) K/mm3 Lymph # 3.3 (1.2-5.4) K/mm3 [place] # 0.7 (0.0-0.8) K/mm3 Eos # 0.2 (0.0-0.4) K/mm3 Baso # 0.0 (0.0-0.1) K/mm3 Comprehensive Metabolic Panel 03/11/18 Range/Units 07:19 Sodium 142 (137-145) mmol/L Potassium 3.9 (3.6-5.0) mmol/L Chloride 100.6 (98-107) mmol/L Carbon Dioxide 27 (22-30) mmol/L BUN 10 (9-20) mg/dL Creatinine 1.0 (0.8-1.5) mg/dL Glucose 92 (75-100) mg/dL Calcium 9.1 (8.4-10.2) mg/dL
[2018-03-11] MEDS ORDERED: ZESTRIL PO SCH (10:00)
[2018-03-11] MEDS ORDERED: ALDACTONE PO SCH (10:00)
[2018-03-11 11:12] VITALS: BP 127/84
[2018-03-11] MEDS: PLAVIX PO SCH (11:12)
[2018-03-11] MEDS: HALFPRIN EC PO SCH (11:13)
[2018-03-11] MEDS: PEPCID PO SCH (11:14)
[2018-03-11] MEDS: SODIUM CHLORIDE FLUSH SYRINGE 10 ML IV SCH (11:15)
--- NOTE | 2018-03-11 11:19 | Progress Note ---
Assessment and Plan 47 year old male presented with acute onset of vertigo, nausea and vomiting, beginning last nite. Most exacerbated by change in vertical postition. he has been started on Meclizine and Zofran with improvement of his symptoms. He has been sitting up and waliking to restroom with no symptoms. This is most likely benign positional vertigo, responding to meds. He will try to walk in the new this a.m. Plan - continue Meclizine and Zofran. PT for vestibular exercises. Subjective Date of service: 03/11/18 Principal diagnosis: vertigo, CAD, cardiomyopathy Interval history: Feeling well this morning. No spells of dizziness, nausea or vomiting. Slept well. Getting in and out of bed without symptoms. Objective - Exam Narrative Exam: Resting comfortably in bed. Vitals stable. HEENT - no lesions, no inflammation. Chest - clear Heart - reg. rate. normal S-1, S-2. Abdomen - soft, nontender Extremities - no CCE Neurological - speech fluent. Oriented times 3. 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 no nystagmus in all minaya. face symmetric, V-1 to V-3 intact bilaterally tongue midline, hearing intact. Motor - 5/5 throughout. Reflexes - +1 bilaterally. Sensory - intact to touch and pin throughout Cerebellar - intact finger to nose, Meg, fine finger movements. - Vital Sign Vital Signs - 12hr 03/11/18 03/11/18 03/11/18 00:36 05:02 10:26 Temperature 98.6 F 95.7 F L Pulse Rate 63 71 63 Respiratory 20 18 18 Rate Blood Pressure 109/68 95/56 127/84 O2 Sat by Pulse 95 98 100 Oximetry 03/11/18 03/11/18 11:13 11:14 Temperature Pulse Rate 66 66 Respiratory Rate Blood Pressure 127/84 127/84 O2 Sat by Pulse Oximetry - Laboratory Findings CBC and BMP: 03/11/18 07:19 03/11/18 07:19 Abnormal Lab Findings: Abnormal Labs 03/10/18 03/10/18 03/11/18 01:20 07:38 07:19 Lymph % (Auto) 45.6 H [place] % (Auto) 9.1 H Glucose 115 H Ur Specific [place] 1.032 H
--- NOTE | 2018-03-11 15:34 | Discharge Summary ---
Providers - Providers Date of Admission: 03/10/18 08:15 Attending physician: EFREN ALEXANDER MD 03/10/18 08:20 Consult to Physician [CONS] Routine Comment: Consulting Provider: GIGI SWEENEY Physician Instructions: Reason For Exam: dizziness, chest tightness 03/10/18 15:22 Consult to Physician [CONS] Routine Comment: Consulting Provider: GEETHA TEE Physician Instructions: Reason For Exam: Vertigo 03/11/18 15:26 Physical Therapy Evaluation and Treat [CONS] Routine Reason For Exam: vestibular exercise Comment: Primary care physician: INTERNAL SALES ENGINEER Hospitalization Reason for admission: Vertigo Condition: Fair Pertinent studies: Echo unchanged from baseline CT head normal CTA no PE Hospital course: 47-year-old male with past medical history significant for CAD status post stent , cardiomyopathy status post ICD presented to the emergency department for the complaints of dizziness and shortness of breath that started yesterday evening. Patient was walking while the incident happens, patient didn't fall. The room spins around him. patient is also complaining of SOB that worsened with exertion. Patient's systolic blood pressure was in the 150's when the dizziness started. patient took nitroglycerin before the incident. Patient is also complaining of associated recurrent nausea and vomiting. patient has been followed with [facility]. patient denied fever, chills, cough, palpitations. patient was admitted and vertigo resolved. Neurology consulted and recommend symptomatic treatment with meclizine and O/P vestibular exercise. Cardiology evaluated him and ICD interrogation and ECHO was done. Echo unchanged from baseline. blood culture was done. Symptoms were resolved. Patient was discharged home in a stable condition. Disposition: - TO HOME OR SELFCARE Time spent for discharge: 32 minutes - Discharge Diagnoses (1) Vertigo Status: Acute (2) Chest tightness Status: Acute (3) Dizziness Status: Acute (4) Dyspnea Status: Acute Qualifiers: Dyspnea type: shortness of breath Qualified Code(s): R06.02 - Shortness of breath; R06.00 - Dyspnea, unspecified; R06.01 - Orthopnea (5) Intractable nausea and vomiting Status: Acute Qualifiers: Vomiting type: unspecified Qualified Code(s): R11.2 - Nausea with vomiting , unspecified Core Measure Documentation - Palliative Care Palliative Care/ Comfort Measures: Not Applicable - Core Measures Any of the following diagnoses?: none Exam - Physical Exam Narrative exam: Not in cardiopulmonary distress. The patient appeared well nourished and normally developed. Vital signs as documented. Head exam is unremarkable. No scleral icterus . Neck is without jugular venous distension, thyromegaly, or carotid bruits. Lungs are clear to auscultation. Cardiac exam reveals regular rate and Rhythm. First and second heart sounds normal. No murmurs, rubs or gallops. Abdominal exam reveals normal bowel sounds, no masses, no organomegaly and no aortic enlargement. Extremities are nonedematous and both femoral and pedal pulses are normal. 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 No focal weakness. - Constitutional Vitals: Temp Pulse Resp BP Pulse Ox 95.7 F L 66 18 127/84 100 03/11/18 05:02 03/11/18 11:14 03/11/18 10:26 03/11/18 11:14 03/11/18 10:26 Plan Activity: no restrictions Weight Bearing Status: Full Weight Bearing Special Instructions: physical therapy (vestibular exrcise) Additional Instructions: follow up at [facility] [address] in 1-2 weeks Follow up with: PRIMARY CAREMD [Primary Care Provider] - 3-5 Days GIGI SWEENEY MD [Staff Physician] - 7 Days (F/U with blood culture ) Prescriptions: Meclizine [Antivert] 25 mg PO Q6H PRN #20 tablet PRN Reason: Vertigo Other Discharge Orders: Physicial Therapy (Amb) Location: None Selected
== END 2018-03-11 18:10 | disposition home or self-care (01) | DRG 149 ==
LOC: ED 00:57 → 4A 08:15
PROVIDERS: ADMIT Internal Medicine; ATTEND Internal Medicine
PROC: 4B02XTZ Measurement of Cardiac Defibrillator, External Approach (ICD-10-PCS; principal; 2018-03-11)
DX: R42 Dizziness and giddiness (principal); I42.9 Cardiomyopathy, unspecified; R07.89 Other chest pain; I25.10 Atherosclerotic heart disease of native coronary artery without angina pectoris; E78.5 Hyperlipidemia, unspecified; I50.9 Heart failure, unspecified; I11.0 Hypertensive heart disease with heart failure; R06.00 Dyspnea, unspecified; Z79.82 Long term (current) use of aspirin; Z95.810 Presence of automatic (implantable) cardiac defibrillator; Z95.5 Presence of coronary angioplasty implant and graft; I25.2 Old myocardial infarction
CPT/HCPCS: 36415; 70450; 71275; 74022; 76705; 80048; 80074; 81001; 83690; 84443; 84484; 85025; 85379; 87040; 93005; 93010; 93306; A9270-GY; J1644; J2405; J2765; J7030; J7040; Q9967